=== PATIENT | female | born 1970 | race Two or more races ===

== ENCOUNTER → 2025-01-13 | Outpatient (CLI) | payer OTHER ==
[~2025-01-13] MED LIST: REGADENOSON 0.4 MG/5 ML SYRG IV ONE
--- NOTE | 2025-01-15 07:27 | DVHSR ---
APPROVED REPORT Exam: Nuclear Stress Test Indication: Chest pain Stress Tech: Nila Byers Ht: 5 ft 2 in Wt: 160 lbs BSA: 1.74 m2 HR: 93 bpm BP: 125/71 mmHg BMI: 29.26 Rhythm: NSR Medical History Medical History: Fatty Liver, hyperlipidemia Allergies: Keflex, Cefotaxime Stress Test Details Stress Test: Pharmacologic stress testing performed using 0.4 mg of regadenoson per 5 mL given IV ov er 10 seconds. Reason for pharmacologic stress test: Chest Pain. HR Resting HR: 93 bpmMax Heart Rate (APMHR): 167.532709 bpm Max HR Achieved: 142 bpmTarget HR (85% APMHR): 141.476676 bpm % of APMHR: 85.03 Recovery HR: 96 bpm BP Resting BP: 125/71 mmHg Recovery BP: 132/85 mmHg ECG Resting ECG: NSR Clinical Reason for Termination: Completed protocol Nurse Comments Uneventful stress test performed per protocol. Patient tolerated well and she ambulated back to [facility] in stable condition with tech. Stress ECG Conclusion lvef 69% normal perfusion scan no ischemia NM EXAM: Myocardial Perfusion REST/STRESS Nuclear Conclusion Nuclear Findings: negative for ischemia lvef 69% normal perfusion scan no ischemia
== END | disposition home or self-care (01) ==
LOC: XYW 11:14
PROVIDERS: ATTEND Internal Medicine
DX: R07.9 Chest pain, unspecified (principal); E78.5 Hyperlipidemia, unspecified; K76.0 Fatty (change of) liver, not elsewhere classified; Z88.1 Allergy status to other antibiotic agents
CPT/HCPCS: 78452; 93017; A9500; J2785